=== PATIENT | female | born 1935 | race Hispanic/Latino ===

== ENCOUNTER → 2017-11-20 | Day surgery (SDC) | payer MEDICARE, OTHER ==
[~2017-11-20] MED LIST: FENTANYL CITRATE/PF 100MCG/2 ML INJ ONE; HYDROCHLOROTHIA25 MG PO; MIDAZOLAM HCL 2 MG/2 ML VIAL ONE; NAMENDA10 MG PO; OR PHACO EYE KIT ONE; PREOP PHACO EYE KIT ONE; SINEMET 25-1001 EACH PO; VASOTEC10 MG PO; VIT A PO; VIT C PO; VIT E PO; VIT PO
== END | disposition home or self-care (01) ==
LOC: OR 09:48
PROVIDERS: ATTEND Ophthalmology
DX: H25.11 Age-related nuclear cataract, right eye (principal); I10 Essential (primary) hypertension; G20 Parkinson's disease; Z88.0 Allergy status to penicillin
CPT/HCPCS: 66984; J2250

== ENCOUNTER → 2017-12-11 | Day surgery (SDC) | payer MEDICARE, OTHER ==
[~2017-12-11] MED LIST changes: -FENTANYL CITRATE/PF 100MCG/2 ML INJ ONE; +SODIUM CHLORIDE 0.9% 500ML 500 ML ONE
== END | disposition home or self-care (01) ==
LOC: OR 09:01
PROVIDERS: ATTEND Ophthalmology
DX: H25.12 Age-related nuclear cataract, left eye (principal); G20 Parkinson's disease; I12.9 Hypertensive chronic kidney disease with stage 1 through stage 4 chronic kidney disease, or unspecified chronic kidney disease; N18.9 Chronic kidney disease, unspecified; Z88.0 Allergy status to penicillin
CPT/HCPCS: 66984; J2250; J7040; V2632